=== PATIENT | female | born 1930 | race American Indian/Alaskan Native ===

== ENCOUNTER 2017-02-24 09:50 | Day surgery (SDC) | payer MEDICARE, MEDICAID ==
[2017-02-23 08:43] VITALS: BMI 28.1
[2017-02-24 10:13] LABS: BASO # 0.02 K/mm3 (0.0-2.0); BASO % 0.2 % (0.0-3.0); EOS # 0.1 (0.0-0.7); EOS % 0.7 % (1.5-5.0); GRAN # 5.33 (1.4-6.5); GRAN % 60.8 % (50.0-68.0); HEMATOCRIT 30.9 % (36.0-48.0); LYMPH # 2.7 (1.2-3.4); LYMPH % 30.7 % (22.0-35.0); MEAN CELL VOLUME 88.5 fl (80.0-105.0); MEAN CORPUSCULAR HEMOGLOBIN 26.9 pg (25.0-35.0); MEAN CORPUSCULAR HGB CONC 30.4 g/dl (31.0-37.0); MEAN PLATELET VOLUME 10.2 fl (7.0-11.0); MONO # 0.7 (0.1-0.6); MONO % 7.6 % (1.0-6.0); RED CELL DISTRIBUTION WIDTH 15.5 % (11.5-14.5); WHITE BLOOD COUNT 8.8 10^3/ul (4.5-11.0)
[2017-02-24 10:24] VITALS: O2SAT 98
[2017-02-24 10:24] LABS: CALCIUM 9.6 mg/dL (8.4-10.5); INR 1.2 (0.93-1.08); PARTIAL THROMBOPLASTIN TIME 29.5 Seconds (25.1-36.5); POTASSIUM 4.1 mmol/L (3.6-5.0)
[2017-02-24] MEDS ORDERED: Midazolam 2 MG/2 ML VIAL ONE ×2 (12:13→13:10)
[2017-02-24] MEDS ORDERED: Iodixanol 320 MG/ML 100 ML BOTTLE IV ONE (12:14)
[2017-02-24] MEDS ORDERED: Nitroglycerin 50mg in D5W 50 MG/250 ML BOTTLE IV ONE (12:14)
[2017-02-24] MEDS ORDERED: HEPARIN SODIUM/NS 2,000 ML IV ONE (12:14)
[2017-02-24] MEDS ORDERED: Iodixanol 320 MG/ML 200 ML BOTTLE IV ONE (12:14)
[2017-02-24] MEDS ORDERED: Lidocaine 2% Inj (20ml) ONE (12:15)
[2017-02-24] MEDS ORDERED: Sodium Chloride 0.45% 1,000 ML IV SCH (14:15)
--- NOTE | 2017-02-24 14:40 | VASCULAR ---
PROCEDURE: Abdominal aortogram and bilateral lower extremity runoff with left common femoral artery and right brachial artery punctures HISTORY: Severe peripheral vascular disease. Dementia. Bedridden. Right foot gangrene. PHYSICIAN(S): Dinesh Xavier MD. TECHNIQUE: The relative risks and indications of the procedure were explained to the patient's guide daughter and power of safety person and consent obtained. The patient was hydrated prior to the procedure and the appropriate labs drawn. The patient was placed supine on the arteriogram table and the left groin prepped and draped in the usual sterile fashion. Conscious sedation and monitoring were provided throughout the procedure by a nurse. The left common femoral artery is punctured under ultrasound guidance with a micropuncture set. The wire would not advance in the left external iliac artery. A 5 Ukrainian catheter was placed. Injection revealed a calcified chronically occluded left external iliac artery. Attempts at retrograde passage of the occluded left iliac system were unsuccessful. Re-entry could not be obtained at the bifurcation. The patient's left arm was not have available for access due to her contracted condition. The right arm was prepped and draped usual sterile fashion. Under ultrasound guidance the right high brachial artery was punctured and a 6 Ukrainian sheath placed. A 5 Ukrainian flush catheter was placed in the abdominal aorta and multiple DSA aorta grams performed. Exchange is made for 6 Ukrainian 70 cm sheath was placed the distal abdominal aorta. ADA this catheter was used to probe the occluded right common iliac stent. The wire and catheter were advanced to the distal right external iliac artery. Re-entry could not be obtained due to the numerous 8 iliac, common femoral artery, and SFA stents. The procedure was terminated. The sheaths were removed hemostasis obtained. The patient tolerated the procedure well. FINDINGS: Diffuse vascular calcification is noted. As previously mentioned, there is chronic occlusions of the left common and external iliac arteries. The left common femoral artery is reconstituted at the inguinal ligament. Left common femoral artery is calcified and smoothly narrowed without radiographically significant stenosis. The proximal left profunda femoral artery enlarged. Proximal left SFA is occluded. 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 The abdominal aorta is smoothly calcified and patent. There is a 60 percent calcified stenosis of the proximal left renal artery and a a 70-80 percent stenosis of the proximal right renal artery. The common iliac arteries and internal iliac arteries are patent bilaterally. The external iliac arteries are chronically occluded bilaterally. There is a stent in the proximal right external iliac artery. Occluded stents are noted in the right common femoral artery and proximal right SFA. There is opacifications of bilateral profunda femoral artery branches via internal iliac artery collaterals. IMPRESSION: 1. Chronic bilateral external iliac artery occlusions. 2. Occluded right common femoral artery and SFA stents. 3. The occluded right iliac system could not be successfully crossed with re-entry in an antegrade direction. 4. Given the patient's overall condition, revascularization cannot easily be obtained and she should be considered for right above the knee amputation. These results were relayed to the patient's goddaughter and Dr. Vazquez.
[2017-02-24 15:21] VITALS: RESP 18
[2017-02-24 15:46] VITALS: TEMP 97.5
[2017-02-24 16:04] VITALS: PULSE 78
[2017-02-24 17:11] VITALS: BP 112/70
== END 2017-02-24 17:00 | disposition home or self-care (01) ==
LOC: SDSVAS 09:50
PROVIDERS: ATTEND Radiology Vascular & Interventional Radiology
DX: T82.898A Other specified complication of vascular prosthetic devices, implants and grafts, initial encounter (principal); I74.5 Embolism and thrombosis of iliac artery; I96 Gangrene, not elsewhere classified; I73.9 Peripheral vascular disease, unspecified; F03.90 Unspecified dementia, unspecified severity, without behavioral disturbance, psychotic disturbance, mood disturbance, and anxiety; Z74.01 Bed confinement status; Y84.8 Other medical procedures as the cause of abnormal reaction of the patient, or of later complication, without mention of misadventure at the time of the procedure
CPT/HCPCS: 36140; 36246; 36415; 75625; 75716; 80048; 85025; 85610; 85730; 99152; 99153; C1769 ×4; C1887 ×2; C1892; C1894; J1644; J2250; J2405; J3010; J7030; Q9967